=== PATIENT | female | born 1970 ===

== ENCOUNTER 2017-12-26 10:27 | Emergency (ER) | payer OTHER ==
[~2017-12-26] VITALS: Ht 182.9 cm; Wt 98.9 kg
[2017-12-26] MEDS ORDERED: KETO10TA2 PO (14:44)
[2017-12-26] MEDS ORDERED: NORFLEX100MG PO (14:44)
== END 2017-12-26 14:56 | disposition home or self-care (01) ==
LOC: ER 10:27
DX: M54.2 Cervicalgia (principal); R07.89 Other chest pain; M54.5 Low back pain